=== PATIENT | male | born 1990 | race Caucasian/White ===

== ENCOUNTER 2022-03-01 12:09 | Emergency (ER) | payer MEDICAID ==
[~2022-03-01] VITALS: Ht 177.8 cm; Wt 72.7 kg
[2022-03-01 12:11] VITALS: BP 131/63
[2022-03-01] MEDS ORDERED: PROPARACAINE HCL 0.5% 15 ML OPHTHALMIC SOLUTION OU ONE (12:45)
[2022-03-01] MEDS ORDERED: FLUORESCEIN SODIUM 1 MG STRIP OU ONE (12:45)
[2022-03-01] MEDS ORDERED: ERYT3.5O8 OD (12:57)
== END 2022-03-01 13:09 | disposition home or self-care (01) ==
LOC: EMS 12:09
DX: T15.91XA Foreign body on external eye, part unspecified, right eye, initial encounter (principal); J45.909 Unspecified asthma, uncomplicated; F17.210 Nicotine dependence, cigarettes, uncomplicated; F12.90 Cannabis use, unspecified, uncomplicated
CPT/HCPCS: 65205; 99284; Z7502; Z7610

== ENCOUNTER 2025-08-28 18:41 | Emergency (ER) | payer MEDICAID ==
[~2025-08-28] VITALS: Ht 175.3 cm; Wt 81.8 kg
[~2025-08-28 18:41] MED LIST: ERYT3.5O8 OD
[2025-08-28 18:46] VITALS: TEMP 98.2
[2025-08-28] MEDS: PROPARACAINE HCL 0.5% 15 ML OPHTHALMIC SOLUTION OD ONE (19:31)
[2025-08-28] MEDS: FLUORESCEIN SODIUM 1 MG STRIP OD ONE (19:31)
[2025-08-28] MEDS: ERYTHROMYCIN 0.5% 3.5 GM TUBE OPHTHALMIC OINTMENT OS ONE (19:43)
[2025-08-28 19:48] VITALS: BP 118/70; PULSE 68; RESP 16; O2SAT 100
== END 2025-08-28 19:52 | disposition home or self-care (01) ==
LOC: EMS 18:41
DX: T15.92XA Foreign body on external eye, part unspecified, left eye, initial encounter (principal); H57.12 Ocular pain, left eye; F12.90 Cannabis use, unspecified, uncomplicated; J45.909 Unspecified asthma, uncomplicated; W44.9XXA Unspecified foreign body entering into or through a natural orifice, initial encounter
CPT/HCPCS: 99283; 99284